=== PATIENT | male | born 1965 | race Caucasian/White ===

== ENCOUNTER 2016-08-21 18:26 | Emergency (ER) | payer MEDICAID ==
[~2016-08-21] VITALS: Ht 167.6 cm; Wt 83.6 kg
[2016-08-21 20:20] VITALS: BP 131/87
== END 2016-08-21 20:23 | disposition home or self-care (01) ==
LOC: EEVIPCON 18:28 → EMS 18:28
DX: K08.89 Other specified disorders of teeth and supporting structures (principal); R03.0 Elevated blood-pressure reading, without diagnosis of hypertension; Y04.2XXA Assault by strike against or bumped into by another person, initial encounter; Y93.89 Activity, other specified; Y92.89 Other specified places as the place of occurrence of the external cause; Y99.8 Other external cause status
CPT/HCPCS: 99283

== ENCOUNTER 2018-08-12 02:37 | Emergency (ER) | payer MEDICAID ==
[~2018-08-12] VITALS: Ht 167.6 cm; Wt 63.6 kg
[2018-08-12] MEDS ORDERED: HYPROMELLOSE 0.5% 15 ML OPHTHALMIC SOLUTION OU ONE (04:30)
[2018-08-12 04:35] VITALS: BP 119/73
== END 2018-08-12 04:49 | disposition home or self-care (01) ==
LOC: EMS 02:39
DX: H53.9 Unspecified visual disturbance (principal)

== ENCOUNTER 2018-12-04 04:36 | Emergency (ER) | payer MEDICAID | END 2018-12-04 04:50 | disposition left against medical advice (07) | LOC: EMS 04:36 | DX: Z53.21 Procedure and treatment not carried out due to patient leaving prior to being seen by health care provider (principal) ==

== ENCOUNTER 2021-07-10 20:02 | Emergency (ER) | payer MEDICAID, OTHER ==
[2021-07-10] MEDS ORDERED: POVIDONE-IODINE 10% 15 ML SOLUTION UD TP ONE (21:00)
[2021-07-10] MEDS ORDERED: ACETAMINOPHEN 500 MG TABLET PO ONE (21:00)
[2021-07-10] MEDS ORDERED: BACITRACIN 0.9 GM PACKET OINTMENT TP ONE (21:00)
[2021-07-10] MEDS ORDERED: PERTUSS(ACELL),DIPH,TET VAC/PF 0.5 ML SYRINGE IM. ONE (21:00)
[2021-07-10] MEDS ORDERED: MUPI1OIN5 TP (21:42)
== END 2021-07-10 22:02 | disposition home or self-care (01) ==
LOC: EMS 20:55
DX: S91.011A Laceration without foreign body, right ankle, initial encounter (principal); X58.XXXA Exposure to other specified factors, initial encounter; Y93.01 Activity, walking, marching and hiking; Y92.89 Other specified places as the place of occurrence of the external cause; Y99.8 Other external cause status
CPT/HCPCS: 90471; 90715; 99283

== ENCOUNTER 2022-05-04 04:24 | Emergency (ER) | payer OTHER ==
[~2022-05-04] VITALS: Ht 170.2 cm; Wt 85.4 kg
[~2022-05-04 04:24] MED LIST: MUPI1OIN5 TP
[2022-05-04] MEDS ORDERED: CefTRIAXone 1 GM/DEXTROSE 50 ML IV ONE (04:45)
[2022-05-04] MEDS ORDERED: PANTOPRAZOLE SODIUM 40 MG/VIAL IVP ONE (04:45)
[2022-05-04] MEDS ORDERED: PANTOPRAZOLE SODIUM 80 MG in SODIUM CHLORIDE 0.9% 100 ML IV SCH ×2 (05:00→13:30)
[2022-05-04 05:10] LABS: BASOPHILS % (AUTO) 0.1 % (0.0-2.0); EOSINOPHILS % (AUTO) 0.3 % (1.0-6.0); HEMATOCRIT 35.4 % (41-53); HEMOGLOBIN 11.3 g/dL (13.5-17.5); LYMPHOCYTES # (AUTO) 2.7 K/uL (1.0-4.8); LYMPHOCYTES % (AUTO) 32.4 % (22.0-44.0); MEAN CORPUSCULAR HEMOGLOBIN 27.2 pg (26.0-34.0); MEAN CORPUSCULAR HGB CONC 31.9 G/dL (31.0-37.0); MEAN CORPUSCULAR VOLUME 85 fL (80-100); MONOCYTES # (AUTO) 0.7 K/uL (0.1-1.0); MONOCYTES % (AUTO) 8.4 % (2.0-9.0); NEUTROPHILS % (AUTO) 58.8 % (40.0-70.0); PLATELET COUNT (AUTO) 170 K/uL (150-450); RED BLOOD CELL COUNT(AUTO) 4.15 MIL/uL (4.50-5.90); RED CELL DISTRIBUTION WIDTH 15.6 % (11.5-14.5)
[2022-05-04 05:23] LABS: ANION GAP 8 mmol/L (8-16); CALCIUM, TOTAL 8.6 mg/dL (8.8-10.5); CARBON DIOXIDE 24 mmol/L (22-29); CHLORIDE 107 mmol/L (98-107); CREATININE 0.92 mg/dL (0.60-1.30); GLOMERULAR FILTR. RATE CALC > 60 mL/min (>60); GLUCOSE,RANDOM 143 mg/dL (70-110); POTASSIUM 4.8 mmol/L (3.5-5.1); SODIUM SERUM 139 mmol/L (136-145); UREA NITROGEN, BLOOD 37 mg/dL (7-18)
[2022-05-04 05:29] LABS: ALANINE AMINOTRANSFERASE 98 U/L (12-78); ALBUMIN 2.7 g/dL (3.4-5.0); ALKALINE PHOSPHATASE 97 U/L (46-116); ASPARTATE AMINOTRANSFERASE 105 U/L (15-37); BILIRUBIN,TOTAL 0.8 mg/dL (0.1-1.0); LIPASE 74 U/L (73-393); TOTAL PROTEIN, SERUM 6.9 g/dL (6.4-8.2)
[2022-05-04 05:59] LABS: COVID AG,FIA SOURCE NASAL SWAB
[2022-05-04 06:03] LABS: INR 1.2 (0.9-1.1); PROTHROMBIN TIME 12.5 SEC (9.4-11.6)
[2022-05-04] MEDS ORDERED: ONDANSETRON HCL 4 MG/2 ML VIAL IVP PRN (06:15)
[2022-05-04] MEDS: RINGERS SOLUTION,LACTATED 1,000 ML IV SCH ×2 (06:33→14:42)
[2022-05-04] MEDS ORDERED: OCTREOTIDE ACETATE 100 MCG/ML VIAL IVP ONE (07:00)
[2022-05-04] MEDS: 1: MAGNESIUM SULFATE 2 GM, MVI, ADULT NO.1 WITH VIT K 10 ML, THIAMINE 100 MG, FOLIC ACID IV SCH ×10 (07:13→14:42)
[2022-05-04 07:15] LABS: % IRON SATURATION 56.2 % (30-44)
[2022-05-04 07:46] LABS: HEMATOCRIT 32.4 % (41-53); HEMOGLOBIN 10.4 g/dL (13.5-17.5)
[2022-05-04] MEDS ORDERED: LORazepam 2 MG/ML VIAL IVP PRN (09:00)
[2022-05-04] MEDS ORDERED: ERYTHROMYCIN LACTOBIONATE 250 MG in SODIUM CHLORIDE 0.9% 100 ML IV ONE (09:00)
[2022-05-04] MEDS ORDERED: SODIUM CHLORIDE 0.9% 1,000 ML ONE (09:20)
[2022-05-04] MEDS ORDERED: PROPOFOL 1% 20 ML VIAL IVP ONE (12:00)
[2022-05-04 15:12] LABS: HEMATOCRIT 29.3 % (41-53); HEMOGLOBIN 9.4 g/dL (13.5-17.5)
[2022-05-04 15:13] VITALS: BP 107/69
== END 2022-05-04 16:23 | disposition short-term general hospital (02) ==
LOC: EMS 04:25
DX: K92.0 Hematemesis (principal); F10.20 Alcohol dependence, uncomplicated; K74.60 Unspecified cirrhosis of liver; H54.7 Unspecified visual loss; Z20.822 Contact with and (suspected) exposure to COVID-19
CPT/HCPCS: 80053; 82140; 83540; 83550; 83690; 85014; 85018; 85025; 85045; 85384; 85610; 85730; 86850; 86900; 86901; 36415; 88305; 88312; 88313; 88342; 71045; 76700; 93005; 96365; 96366; 96368; 99291; 87426; 43235; Z7610; C1769; J2704; J0696; J1364; J3490 ×2; J2354; J2405; C9113; J3411; J7120; J3475; J7030; J7050

== ENCOUNTER 2023-10-15 17:24 | Emergency (ER) | payer OTHER ==
[~2023-10-15] VITALS: Ht 167.6 cm; Wt 77.3 kg
[2023-10-15 17:31] VITALS: BP 114/81; PULSE 96; RESP 16; TEMP 97.8
== END 2023-10-15 22:55 | disposition left against medical advice (07) ==
LOC: EMS 17:24
DX: R10.32 Left lower quadrant pain (principal); Z53.21 Procedure and treatment not carried out due to patient leaving prior to being seen by health care provider

== ENCOUNTER 2024-04-14 20:44 | Emergency (ER) | payer OTHER ==
[~2024-04-14] VITALS: Ht 152.4 cm; Wt 88.6 kg
[2024-04-14 20:55] VITALS: TEMP 97.8
[2024-04-14] MEDS ORDERED: LATANOPROST OD (21:02)
[2024-04-14] MEDS ORDERED: BRIN10DR3 OD (21:02)
[2024-04-14] MEDS ORDERED: FERR325T27 PO (21:02)
[2024-04-14] MEDS ORDERED: FOLI-130 PO (21:02)
[2024-04-14] MEDS ORDERED: ROPI0.2535 PO (21:02)
[2024-04-14] MEDS ORDERED: PANT-31 PO (21:02)
[2024-04-14] MEDS ORDERED: RIFAX550 PO (21:02)
[2024-04-14 23:16] LABS: BASOPHILS % (AUTO) 0.5 % (0.0-2.0); EOSINOPHILS % (AUTO) 2.7 % (1.0-6.0); HEMATOCRIT 40.1 % (41-53); HEMOGLOBIN 13.5 g/dL (13.5-17.5); LYMPHOCYTES # (AUTO) 0.7 K/uL (1.0-4.8); LYMPHOCYTES % (AUTO) 25.5 % (22.0-44.0); MEAN CORPUSCULAR HEMOGLOBIN 32.9 pg (26.0-34.0); MEAN CORPUSCULAR HGB CONC 33.6 G/dL (31.0-37.0); MEAN CORPUSCULAR VOLUME 98 fL (80-100); MONOCYTES # (AUTO) 0.4 K/uL (0.1-1.0); NEUTROPHILS # (AUTO) 1.6 K/uL (1.8-7.7); NEUTROPHILS % (AUTO) 57.3 % (40.0-70.0); RED BLOOD CELL COUNT(AUTO) 4.09 MIL/uL (4.50-5.90); RED CELL DISTRIBUTION WIDTH 14.7 % (11.5-14.5); WHITE BLOOD COUNT (AUTO) 2.8 K/uL (4.5-11.0)
[2024-04-14 23:20] LABS: PLATELET COUNT (AUTO) 88 K/uL (150-450)
[2024-04-14 23:21] LABS: ANION GAP 6 mmol/L (8-16); CALCIUM, TOTAL 8.4 mg/dL (8.8-10.5); CARBON DIOXIDE 28 mmol/L (22-29); CHLORIDE 108 mmol/L (98-107); CREATININE 0.86 mg/dL (0.60-1.30); GLOMERULAR FILTR. RATE CALC > 60 mL/min (>60); GLUCOSE,RANDOM 93 mg/dL (70-110); POTASSIUM 4.1 mmol/L (3.5-5.1); SODIUM SERUM 142 mmol/L (136-145); UREA NITROGEN, BLOOD 12 mg/dL (7-18)
[2024-04-14 23:25] VITALS: BP 136/84; PULSE 84; RESP 20; O2SAT 99
[2024-04-14 23:34] LABS: TROPONIN I-HIGH SENSITIVITY 12 ng/L (<76)
[2024-04-14 23:41] LABS: B-TYPE NATRIURETIC PEPTIDE 15 pg/mL (0-100)
[2024-04-15] MEDS: PredniSONE 20 MG TABLET PO ONE (00:45)
[2024-04-15] MEDS ORDERED: PRED-554 PO (00:48)
== END 2024-04-15 00:54 | disposition home or self-care (01) ==
LOC: EMS 20:44
DX: M10.9 Gout, unspecified (principal); F10.20 Alcohol dependence, uncomplicated; K74.60 Unspecified cirrhosis of liver; Z79.899 Other long term (current) drug therapy
CPT/HCPCS: 99284; 93971; 71045; 80048; 83880; 84484; 85025; 36415; 73610; 73630; J7512

== ENCOUNTER 2024-05-17 02:26 | Inpatient (IN) | payer OTHER ==
[~2024-05-17] VITALS: Ht 167.6 cm; Wt 90.9 kg
[~2024-05-17 02:26] MED LIST changes: +BRIN10DR3 OD; +FERR325T27 PO; +FOLI-130 PO; +LATANOPROST OD; -MUPI1OIN5 TP; +PANT-31 PO; +PRED-554 PO; +RIFAX550 PO; +ROPI0.2535 PO
[2024-05-17 04:55] LABS: BASOPHILS % (AUTO) 0.5 % (0.0-2.0); EOSINOPHILS % (AUTO) 1.5 % (1.0-6.0); HEMATOCRIT 40.7 % (41-53); HEMOGLOBIN 14.1 g/dL (13.5-17.5); LYMPHOCYTES # (AUTO) 0.9 K/uL (1.0-4.8); LYMPHOCYTES % (AUTO) 29.1 % (22.0-44.0); MEAN CORPUSCULAR HEMOGLOBIN 33.6 pg (26.0-34.0); MEAN CORPUSCULAR HGB CONC 34.6 G/dL (31.0-37.0); MEAN CORPUSCULAR VOLUME 97 fL (80-100); MONOCYTES # (AUTO) 0.5 K/uL (0.1-1.0); MONOCYTES % (AUTO) 14.7 % (2.0-9.0); NEUTROPHILS # (AUTO) 1.7 K/uL (1.8-7.7); NEUTROPHILS % (AUTO) 54.2 % (40.0-70.0); PLATELET COUNT (AUTO) 94 K/uL (150-450); RED BLOOD CELL COUNT(AUTO) 4.19 MIL/uL (4.50-5.90); RED CELL DISTRIBUTION WIDTH 14.4 % (11.5-14.5); WHITE BLOOD COUNT (AUTO) 3.2 K/uL (4.5-11.0)
[2024-05-17 05:02] LABS: ANION GAP 4 mmol/L (8-16); CALCIUM, TOTAL 9.1 mg/dL (8.8-10.5); CARBON DIOXIDE 30 mmol/L (22-29); CHLORIDE 109 mmol/L (98-107); GLOMERULAR FILTR. RATE CALC > 60 mL/min (>60); GLUCOSE,RANDOM 99 mg/dL (70-110); POTASSIUM 3.9 mmol/L (3.5-5.1); SODIUM SERUM 143 mmol/L (136-145); UREA NITROGEN, BLOOD 12 mg/dL (7-18)
[2024-05-17 05:06] LABS: ALBUMIN 2.4 g/dL (3.4-5.0); BILIRUBIN,DIRECT 0.7 mg/dL (0.00-0.20); BILIRUBIN,TOTAL 1.9 mg/dL (0.1-1.0); TOTAL PROTEIN, SERUM 6.4 g/dL (6.4-8.2)
[2024-05-17 05:12] LABS: CREATINE KINASE, TOTAL ONLY 144 U/L (39-308); LIPASE 47 U/L (16-77); TROPONIN I-HIGH SENSITIVITY 12 ng/L (<76)
[2024-05-17 05:24] LABS: PROTHROMBIN TIME 13.6 SEC (9.4-11.6)
[2024-05-17 05:27] LABS: ALCOHOL, URINE DRUG SCREEN NEGATIVE (NEGATIVE); AMPHET/METH SCREEN,URINE POSITIVE (NEGATIVE); BARBITURATE SCREEN, URINE NEGATIVE (NEGATIVE); BENZODIAZEPINES SCREEN,URINE NEGATIVE (NEGATIVE); CANNABINOID SCREEN,URINE NEGATIVE (NEGATIVE); COCAINE SCREEN,URINE NEGATIVE (NEGATIVE); METHADONE SCREEN, URINE NEGATIVE (NEGATIVE); OPIATE SCREEN,URINE NEGATIVE (NEGATIVE); PHENCYCLIDINE SCREEN,URINE NEGATIVE (NEGATIVE)
[2024-05-17 05:33] LABS: LACTIC ACID 1.2 mmol/L (0.4-2.0)
[2024-05-17] MEDS ORDERED: ACETAMINOPHEN 325 MG TABLET PO PRN (05:45)
[2024-05-17] MEDS ORDERED: ONDANSETRON HCL 4 MG/2 ML VIAL IVP PRN (05:45)
[2024-05-17] MEDS ORDERED: DEXTROSE 50%-WATER 25 GM/50 ML SYRINGE IVP PRN (05:45)
[2024-05-17] MEDS ORDERED: INSULIN LISPRO 100 UNITS/ML SQ PRN (05:45)
[2024-05-17 05:49] LABS: APPEARANCE,URINE CLEAR (CLEAR); BILIRUBIN,URINE NEGATIVE (NEGATIVE); COLOR,URINE YELLOW (YELLOW); GLUCOSE, URINE (UA) NEGATIVE (NEGATIVE); KETONES,URINE NEGATIVE (NEGATIVE); LEUKOCYTE ESTERASE ,URINE NEGATIVE (NEGATIVE); NITRATE,URINE NEGATIVE (NEGATIVE); OCCULT BLOOD,URINE SMALL (NEGATIVE); PROTEIN,URINE TRACE mg/dL (NEGATIVE); SPECIFIC GRAVITIY, URINE 1.025 (1.003-1.030); UROBILINOGEN,URINE >12.0 mg/dL (<=1.0)
[2024-05-17 05:54] LABS: BACTERIA,URINE Rare /HPF (None Seen); RBC,URINE 0-2 /HPF (0-2); WBC,URINE None Seen /HPF (0-5)
[2024-05-17] MEDS: ONDANSETRON HCL 4 MG/2 ML VIAL IVP ONE (05:55)
[2024-05-17 09:00] VITALS: BP 141/86; PULSE 87; RESP 16; TEMP 98.6; O2SAT 98
[2024-05-17] MEDS: FAMOTIDINE 20 MG TABLET PO SCH (09:32)
[2024-05-17] MEDS: LACTULOSE 20 GM/30 ML SOLUTION UDCUP PO ONE (09:32)
[2024-05-17] MEDS: LACTULOSE 20 GM/30 ML SOLUTION UDCUP PO SCH (09:32)
[2024-05-17] MEDS: RIFAXIMIN 550 MG TABLET PO SCH (09:32)
[2024-05-17 20:36] VITALS: BP 124/78; PULSE 89; RESP 18; TEMP 98.3; O2SAT 95
[2024-05-17 21:15] LABS: GLUCOMETER DEV NAME(LOC) 6S.1D; GLUCOSE,POINT OF CARE 112 MG/DL (70-110)
[2024-05-17 21:30] LABS: GLUCOMETER DEV NAME(LOC) 6S.2; GLUCOSE,POINT OF CARE 149 MG/DL (70-110)
[2024-05-18 04:58] VITALS: BP 120/71; PULSE 88; RESP 20; TEMP 98.8; O2SAT 96
[2024-05-18 05:56] LABS: GLUCOMETER DEV NAME(LOC) 6S.1D; GLUCOSE,POINT OF CARE 123 MG/DL (70-110)
[2024-05-18 08:00] VITALS: BP 131/92; PULSE 94; RESP 17; TEMP 98.1; O2SAT 98
[2024-05-18 16:12] VITALS: BP 123/83; PULSE 90; RESP 18; TEMP 98; O2SAT 97
[2024-05-18 16:31] LABS: GLUCOMETER DEV NAME(LOC) 6S.1D; GLUCOSE,POINT OF CARE 101 MG/DL (70-110)
[2024-05-18 17:55] LABS: GLUCOMETER DEV NAME(LOC) 6S.2; GLUCOSE,POINT OF CARE 115 MG/DL (70-110)
[2024-05-18 19:56] VITALS: BP 119/78; PULSE 93; RESP 18; TEMP 98; O2SAT 96
[2024-05-19] MEDS ORDERED: XALA2.5OS OD (00:14)
[2024-05-19] MEDS ORDERED: BRIN10DR3 OD (00:14)
[2024-05-19] MEDS ORDERED: BRINZOLAMIDE 1% 10 ML OPHTHALMIC SUSPENSION OD SCH ×3 (00:30→21:00)
[2024-05-19 00:35] LABS: GLUCOMETER DEV NAME(LOC) 6S.2; GLUCOSE,POINT OF CARE 108 MG/DL (70-110)
[2024-05-19] MEDS: BRINZOLAMIDE 1% 10 ML OPHTHALMIC SUSPENSION OD SCH (00:40)
[2024-05-19] MEDS: LATANOPROST 0.005% 2.5 ML OPHTHALMIC SOLUTION OD SCH (00:40)
[2024-05-19 05:33] VITALS: BP 126/82; PULSE 100; RESP 18; TEMP 98.5; O2SAT 94
[2024-05-19 07:05] LABS: GLUCOMETER DEV NAME(LOC) 6N.2B; GLUCOSE,POINT OF CARE 113 MG/DL (70-110)
[2024-05-19 08:17] LABS: ANION GAP 5 mmol/L (8-16); CALCIUM, TOTAL 8.2 mg/dL (8.8-10.5); CARBON DIOXIDE 28 mmol/L (22-29); CHLORIDE 105 mmol/L (98-107); CREATININE 0.62 mg/dL (0.60-1.30); GLOMERULAR FILTR. RATE CALC > 60 mL/min (>60); GLUCOSE,RANDOM 139 mg/dL (70-110); POTASSIUM 3.5 mmol/L (3.5-5.1); SODIUM SERUM 138 mmol/L (136-145); UREA NITROGEN, BLOOD 7 mg/dL (7-18)
[2024-05-19 08:25] VITALS: BP 133/73; PULSE 102; RESP 20; TEMP 98.8; O2SAT 98
[2024-05-19] MEDS ORDERED: LACT10SO85 PO (09:39)
[2024-05-19] MEDS ORDERED: LATANOPROST 0.005% 2.5 ML OPHTHALMIC SOLUTION OD SCH (21:00)
== END 2024-05-19 11:30 | disposition home or self-care (01) | DRG 280 ==
LOC: EMS 02:26 → EDH 05:42 → 6S 10:10
PROVIDERS: ADMIT Internal Medicine; ATTEND Internal Medicine
DX: K76.82 Hepatic encephalopathy (principal); K70.9 Alcoholic liver disease, unspecified; G92.9 Unspecified toxic encephalopathy; D61.818 Other pancytopenia; F15.90 Other stimulant use, unspecified, uncomplicated; K74.60 Unspecified cirrhosis of liver; Z91.199 Patient's noncompliance with other medical treatment and regimen due to unspecified reason; E66.9 Obesity, unspecified; B19.20 Unspecified viral hepatitis C without hepatic coma; M10.9 Gout, unspecified; Z68.32 Body mass index [BMI] 32.0-32.9, adult
CPT/HCPCS: 70450; 71045; 80048; 80076; 80307; 81001; 82140; 82550; 82962; 83605; 83690; 84484; 85025; 85610; 85730; 87040; 93005; 96374; 99285; J2405; 36415-L1; 36415-TC